=== PATIENT | female | born 1940 | race Caucasian/White ===

== ENCOUNTER 2022-03-02 11:18 | Inpatient (IN) ==
[2022-03-02] MEDS ORDERED: Acetaminophen 325 MG TABLET PO PRN (14:20)
[2022-03-02] MEDS ORDERED: Ondansetron 4 MG/2 ML VIAL IVP PRN (14:20)
[2022-03-02] MEDS ORDERED: Naloxone 0.4 MG/ML INJ IVP PRN (14:20)
[2022-03-02] MEDS ORDERED: D5% in Water 1,000 ML IVC PRN (14:51)
[2022-03-02] MEDS ORDERED: *HR* Dextrose 50 % in Water (Syg) 50 ML SYRINGE IVP PRN (14:51)
[2022-03-02] MEDS ORDERED: Dextrose Gel 15 GM/37.5 ML TUBE PO PRN ×2 (14:51)
[2022-03-02] MEDS ORDERED: Bisacodyl 10 MG RECTAL SUPPOSITORY RC PRN (15:03)
[2022-03-02 16:05] LABS: BUN/Creatinine Ratio 20 (6-26); Blood Urea Nitrogen 18 mg/dL (8-23); Calcium 6.2 mg/dL (8.6-10.3); Carbon Dioxide 23 mEq/L (23-29); Chloride 122 mEq/L (98-107); Glucose 116 mg/dL (70-105); Osmolality,Calculated 317 (280-300); Sodium 152 mEq/L (136-145); eGFR For African Americans > 60 (> 60); eGFR For Non-African Americans 58 (> 60)
[2022-03-02] MEDS ORDERED: Potassium Chloride Elixir 20 MEQ/15 ML UDC PO ONE (16:06)
[2022-03-02] MEDS ORDERED: D5% in Water 1,000 ML IVC SCH (16:15)
[2022-03-02 16:39] LABS: Thyroid Stimulating Hormone 1.232 mcIU/mL (0.340-5.600)
[2022-03-02] MEDS: Insulin LISPRO 300 UNITS/3 ML VIAL SUBQ SCH (17:16)
[2022-03-02 22:00] LABS: Calcium 8.3 mg/dL (8.6-10.3); Potassium 4.2 mEq/L (3.5-5.1)
[2022-03-03 03:18] LABS: Basophils % 0.4 %; Eosinophils % 0.8 %
[2022-03-03 03:20] LABS: Eosinophils # 0.1 K/mcL (0.0-0.6); Hematocrit 41.1 % (35.3-44.9); Hemoglobin 12.6 g/dL (11.5-15.4); Immature Platelets 8.7 % (1.1-6.1); Lymphocytes % 38.4 %; Mean Corpuscular HGB Conc 30.7 g/dL (31.6-35.5); Mean Corpuscular Hemoglobin 26.1 pg (28.0-33.3); Mean Corpuscular Volume 85.3 fL (83.0-100.0); Mean Platelet Volume 12.2 fL (9.4-12.4); Monocytes # 0.7 K/mcL (0.0-1.3); Monocytes % 6.5 %; Platelet Count 170 K/mcL (140-400); Red Blood Count 4.82 M/mcL (3.82-4.97); Red Cell Distribution Width 15.9 % (11.5-14.5); Segmented Neutrophils % 52.9 %; White Blood Count 11.3 K/mcL (4.3-11.1)
[2022-03-03 03:30] LABS: Estimated Average Glucose 174 mg/dl; Hemoglobin A1C 7.7 %
[2022-03-03 03:46] LABS: Basophils # 0.1 K/mcL (0.0-0.2); Lymphocytes # 4.3 K/mcL (0.6-4.6)
[2022-03-03 03:55] LABS: Calcium 8.1 mg/dL (8.6-10.3); Potassium 5.3 mEq/L (3.5-5.1)
[2022-03-03] MEDS ORDERED: Calcium Gluconate 1gm/50mL 1 GM/50 ML BAG IVPB ONE (07:49)
[2022-03-03] MEDS: Pantoprazole 40 MG VIAL IVP SCH (08:12)
[2022-03-03] MEDS: Eucerin Cream 57 GM TUBE TP SCH (08:12)
[2022-03-03] MEDS: Insulin LISPRO 300 UNITS/3 ML VIAL SUBQ SCH ×3 (08:20→16:39)
[2022-03-03] MEDS ORDERED: Sennosides 8.6 MG TABLET PO SCH (09:00)
[2022-03-03 09:57] LABS: Calcium 8.8 mg/dL (8.6-10.3); Potassium 4.3 mEq/L (3.5-5.1)
[2022-03-03] MEDS: cefTRIAXone 1,000 MG in 0.9 % Sodium Chloride 10 ML IVP SCH (11:25)
[2022-03-03 15:24] LABS: Calcium 8.2 mg/dL (8.6-10.3)
[2022-03-03] MEDS ORDERED: D5% in Water 1,000 ML IVC SCH (16:15)
[2022-03-03] MEDS: D5% in Water 1,000 ML IVC SCH (16:34)
[2022-03-03 22:45] LABS: Calcium 8.2 mg/dL (8.6-10.3); Potassium 4.1 mEq/L (3.5-5.1)
[2022-03-03] MEDS ORDERED: D5% in Water 1,000 ML IVC PRN (23:07)
[2022-03-04] MEDS: D5% in Water 1,000 ML IVC SCH (03:02)
[2022-03-04 05:28] LABS: Basophils % 0.4 %; Eosinophils # 0.2 K/mcL (0.0-0.6); Eosinophils % 1.8 %; Hematocrit 42.2 % (35.3-44.9); Hemoglobin 12.8 g/dL (11.5-15.4); Immature Granulocytes % 0.5 % (0-4); Lymphocytes # 3.9 K/mcL (0.6-4.6); Lymphocytes % 41.4 %; Mean Corpuscular HGB Conc 30.3 g/dL (31.6-35.5); Mean Corpuscular Hemoglobin 26.1 pg (28.0-33.3); Mean Corpuscular Volume 85.9 fL (83.0-100.0); Mean Platelet Volume 11.7 fL (9.4-12.4); Monocytes # 0.4 K/mcL (0.0-1.3); Monocytes % 4.1 %; Neutrophils # 4.9 K/mcL (1.6-8.9); Platelet Count 233 K/mcL (140-400); Red Blood Count 4.91 M/mcL (3.82-4.97); Red Cell Distribution Width 15.6 % (11.5-14.5); Segmented Neutrophils % 51.8 %; White Blood Count 9.4 K/mcL (4.3-11.1)
[2022-03-04 05:53] LABS: Calcium 8.3 mg/dL (8.6-10.3); Magnesium 1.9 mg/dL (1.6-2.6); Potassium 3.4 mEq/L (3.5-5.1)
[2022-03-04] MEDS ORDERED: Potassium Chloride Elixir 20 MEQ/15 ML UDC PO ONE (07:26)
[2022-03-04] MEDS: Insulin LISPRO 300 UNITS/3 ML VIAL SUBQ SCH ×3 (07:42→16:16)
[2022-03-04] MEDS: Eucerin Cream 57 GM TUBE TP SCH (09:50)
[2022-03-04] MEDS: Pantoprazole 40 MG VIAL IVP SCH (09:51)
[2022-03-04] MEDS: cefTRIAXone 1,000 MG in 0.9 % Sodium Chloride 10 ML IVP SCH (12:34)
[2022-03-05 04:44] LABS: Calcium 8.2 mg/dL (8.6-10.3); Magnesium 1.9 mg/dL (1.6-2.6); Phosphorous 3.2 mg/dL (2.7-4.5); Potassium 3.5 mEq/L (3.5-5.1)
[2022-03-05] MEDS: Insulin LISPRO 300 UNITS/3 ML VIAL SUBQ SCH ×3 (08:38→21:35)
[2022-03-05] MEDS: Eucerin Cream 57 GM TUBE TP SCH (08:39)
[2022-03-05] MEDS: Cefdinir 300 MG CAPSULE PO SCH ×2 (08:39→21:36)
[2022-03-05] MEDS: Pantoprazole 40 MG VIAL IVP SCH (08:40)
[2022-03-05 10:04] LABS: Influenza A PCR Negative (Negative); Influenza B PCR Negative (Negative); Resp. Syncytial Virus PCR Negative (Negative)
[2022-03-05 11:03] LABS: SARS-CoV-2 by PCR (In House) Negative (Negative)
[2022-03-06 07:04] VITALS: BP 120/95; PULSE 56; TEMP 97.5; O2SAT 97
[2022-03-06 07:44] LABS: Calcium 8.6 mg/dL (8.6-10.3); Magnesium 2.1 mg/dL (1.6-2.6); Phosphorous 3.1 mg/dL (2.7-4.5); Potassium 4.2 mEq/L (3.5-5.1)
[2022-03-06] MEDS: Insulin LISPRO 300 UNITS/3 ML VIAL SUBQ SCH (07:55)
[2022-03-06] MEDS: Eucerin Cream 57 GM TUBE TP SCH (07:56)
[2022-03-06] MEDS: Pantoprazole 40 MG VIAL IVP SCH (07:56)
[2022-03-06] MEDS: Cefdinir 300 MG CAPSULE PO SCH (07:56)
== END 2022-03-06 11:00 | disposition home or self-care (01) | DRG 640 ==
LOC: 3NENU → SUATTDRO 13:42
PROVIDERS: ADMIT Hospitalist; ATTEND Family Medicine